=== PATIENT | male | born 1945 | race Caucasian/White ===

== ENCOUNTER 2016-03-09 22:03 | Emergency (ER) | payer MEDICARE ==
[~2016-03-09] VITALS: Ht 185.4 cm; Wt 100.0 kg
[2016-03-09 22:07] VITALS: BP 152/95; PULSE 64; RESP 16; O2SAT 98
--- NOTE | 2016-03-09 22:19 | ED.REPORT ---
HPI-General Illness Date of Service Mar 09, 2016 ED Provider: Dr. Marie 62-year-old male presents with oral pharyngeal bleeding. Evidently he was biting a razor clam when he felt a pop in his mouth and then he was spitting up blood. He recently underwent surgery for a salivary gland stone and he is concerned about the surgical scar. The pain that he felt started mouth and ran up to his ear. He does not have any ear pain at the time of evaluation. Nursing Notes Stated Complaint: POST SURGERY/MOUTH BLEEDING Chief Complaint: General Complaint Nursing Notes Reviewed: Yes Allergies: Coded Allergies: codeine (Verified Adverse Reaction, Severe, Nausea,Vomiting, 03/09/16) General Time Seen by MD: 22:19 Chief Complaint Laceration Hx Obtained From: Patient Arrived By: Walk-in Sudden in Onset?: Yes Onset Occurred: Just prior to arrival Symptom Duration: Since onset Caused by: Accidental Location: : Head Quality: Painful Severity: Current: Moderate Severity: Maximum: Moderate Recent Healthcare: Recent doctor visit, Previous surgery Similar Sx Previous: No Past Medical History Past Medical History Reports: Hypertension Past Surgical History Salivary gland surgery to remove a stone January 2016 tooth extraction Smoking History Unknown if Ever Smoker Social History Other Social History: Ambulatory Status Independent Review of Systems Abrasion to tongue and left cheek Full Review of Systems Ears / Nose / Throat: Reports: Earache left Respiratory: Denies: Shortness of breath GI: Denies: Abdominal pain, Vomiting Complete sys rev & neg: except as marked. Physical Exam Vital Signs Vital Signs Date Time Temp Pulse Resp B/P Pulse Ox O2 Delivery O2 Flow Rate FiO2 03/09/16 22:07 36.2 64 16 152/95 98 Room Air Initial VS: Reviewed General/Constitutional: Well-developed, Well-nourished Head / Eyes: Atraumatic, Normocephalic, PERRL Neck: Supple, Non-tender, Full range of motion Respiratory: Breath sounds normal, Clear to auscultation, No respiratory distress Abdomen / GI: Soft, Non-tender, No guarding, No rebound, No distention Extremities: Vascular intact, Neuro intact, No swelling, No tenderness Skin: Warm, Dry, No cyanosis Neurologic: Alert, Oriented, Nonfocal Psychiatric: Mood/affect normal, Behavior normal, Normal thought content ENT: Airway patent, Mucous membranes moist, Pharynx NL Laceration on tongue Re-Eval/Medical Decision Med Decision/Clinical Course Soft tissue avulsion type laceration of the left lateral aspect of his tongue. No muscular involvement. The laceration is curvilinear and is about half a centimeter in size. It is a crush type injury. I will place him on antibiotic prophylaxis. There is nothing about this that I could suture. Recommend that he rinse and spit after eating. Follow up with his ear nose and throat surgeon or with his primary care physician next week. Time of Eval: 22:19 Patient Status: Condition improved Re-Evaluation/Progress Note: Discussed plan for discharge. Pt understands and agrees with plan. All pt questions addressed. Counseled Regarding: Diagnosis, Lab results, Need for follow-up, When/why to return to ED Discharge & Departure Primary Impression: Tongue laceration Encounter type: initial encounter Qualified Code: S01.512A - Laceration without foreign body of oral cavity, initial encounter Disposition: Home Discharge Condition All VS Reviewed: Yes Condition: Improved Patient Instructions: Laceration (ED) Additional Instructions: Watch for signs of infection and return to the ER if your symptoms worsen. Take Augmentin twice daily for 3 days. Rinse with salt water and spit after eating to keep food out of the wound. It should heal in the next couple days. Follow up with your ear, nose and throat surgeon and primary care physician in the next week. Referrals: Jamel Degroot DO (PCP) Ilan Attestation Portions of this note were transcribed by Memo Hartmann. I, Dr. Marie personally performed the history, physical exam and medical decision-making; I reviewed and confirmed the accuracy of the information in the transcribed note. Signed by : Ilan Jackson, 03/09/2016 and 2335. copies to: Jamel Degroot Todd P DO Mar 09, 2016 22:19 MEMO HARTMANN Mar 09, 2016 22:30
[2016-03-09] MEDS ORDERED: Amoxicillin-Clav 875-125 mg Tablet PO ONE (22:30)
== END 2016-03-09 23:20 | disposition home or self-care (01) ==
LOC: SED 22:03
DX: S01.512A Laceration without foreign body of oral cavity, initial encounter (principal); W26.8XXA Contact with other sharp object(s), not elsewhere classified, initial encounter; Y92.9 Unspecified place or not applicable; Y93.89 Activity, other specified; Y99.8 Other external cause status; I10 Essential (primary) hypertension; Z98.890 Other specified postprocedural states; Z88.5 Allergy status to narcotic agent